=== PATIENT | female | born 1975 | race African-American/Black ===

== ENCOUNTER 2019-07-03 13:47 | Emergency (ER) | payer BC ==
--- NOTE | 2019-07-03 16:41 | ER ---
Nurse's Notes [facility] Name: Jennifer Horan Age: 44 yrs Sex: Female : 1975 Arrival Date: 07/03/2019 Time: 13:49 Bed Waiting Private MD: Unknown, Unknown Diagnosis: Presentation: 07/03 13:51 Presenting complaint: Patient states: mid back pain radiating to abdomen x 1 week ago. aa5 Pt reports recent UTI but currently denies any urinary symptoms. Transition of care: patient was not received from another setting of care. Onset of symptoms was June 2019. Risk Assessment: Do you want to hurt yourself or someone else? Patient reports no desire to harm self or others. Initial Sepsis Screen: Does the patient meet any 2 criteria? No. Patient's initial sepsis screen is negative. Does the patient have a suspected source of infection? No. Patient's initial sepsis screen is negative. Care prior to arrival: None. 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 - Social history:: Smoking status: Patient/guardian denies using tobacco. - Ebola Screening: : No symptoms or risks identified at this time. Vital Signs: 13:54 BP 103 / 63; Pulse 77; Resp 18 S; Temp 98.5(O); Pulse Ox 100% on R/A; Weight 86.18 kg aa5 (R); Height 5 ft. 6 in. (167.64 cm) (R); Pain 9/10; 13:54 Body Mass Index 30.67 (86.18 kg, 167.64 cm) aa5 ED Course: 13:49 Patient arrived in ED. ag5 13:49 Unknown, Unknown is Private Physician. ag5 13:51 Arm band placed on. aa5 13:54 Triage completed. aa5 15:33 Collin Blanc MD is Attending Physician. kdr Administered Medications: No medications were administered Outcome: 16:40 Patient left the ED. aa5 Signatures: Collin Blanc MD MD kdr Hyacinth Hillman RN RN aa5 Brayan Calderon ag5
== END 2019-07-03 16:40 | disposition left against medical advice (07) ==
LOC: ER 13:47
DX: Z53.21 Procedure and treatment not carried out due to patient leaving prior to being seen by health care provider (principal)

== ENCOUNTER 2019-07-04 14:04 | Emergency (ER) | payer BC ==
[2019-07-04] MEDS ORDERED: KETOROLAC 30 MG/ML INJ ONE (15:06)
[2019-07-04] MEDS ORDERED: NA CHLORIDE 0.9% 1,000 ML ONE (15:06)
[2019-07-04 15:08] LABS: Absolute Lymphocytes (CBC) 1.3 K/uL (0.7-4.9); Basophils % 0.6 % (0-1.3); Hematocrit 34.5 % (36.0-45.0); Lymphocytes % 28.5 % (15.3-44.8); MPV 8.1 fL (7.6-11.3); RBC Red Blood Cell Count 4.28 M/uL (3.86-4.86)
[2019-07-04 15:11] LABS: Protime INR 1.04
[2019-07-04 15:13] LABS: Urine Blood TRACE (NEG); Urine Glucose NEGATIVE (NEG); Urine Protein NEGATIVE (NEG); Urine Specific Gravity 1.025 (1.005-1.030)
--- NOTE | 2019-07-04 15:20 | RAD REPORT ---
EXAM DESCRIPTION: Sofie Single View07/04/2019 2:46 pm CLINICAL HISTORY: cough COMPARISON: none FINDINGS: The lungs appear clear of acute infiltrate. The heart is normal size IMPRESSION: No acute abnormalities displayed
[2019-07-04 15:26] LABS: ALT/SGPT 26 U/L (12-78); AST/SGOT 18 U/L (15-37); Albumin 3.6 g/dL (3.4-5.0); Alkaline Phosphatase 97 U/L (45-117); BUN Blood Urea Nitrogen 10 mg/dL (7-18); Bicarbonate 27 mmol/L (21-32); Bilirubin Direct < 0.1 mg/dL (0-0.2); Bilirubin Total 0.2 mg/dL (0.2-1.0); Glucose Level 91 mg/dL (74-106); Lipase 146 U/L (73-393); Magnesium 2.1 mg/dL (1.8-2.4); NT PRO-BNP 43 pg/mL (<125); Potassium 3.7 mmol/L (3.5-5.1); Sodium Level 141 mmol/L (136-145); Troponin (Emerg Dept Use Only) < 0.02 ng/mL (0.0-0.045)
--- NOTE | 2019-07-04 15:56 | ER ---
Nurse's Notes [facility] Name: Jennifer Horan Age: 44 yrs Sex: Female : 1975 Arrival Date: 07/04/2019 Time: 14:05 Bed 18 Private MD: Diagnosis: Muscle spasm;Muscle spasm of back;Strain of muscle and tendon of back wall of thorax Presentation: 07/04 14:07 Presenting complaint: Patient states: Eloped from waiting room yesterday and went to [address] ER and had a chest x-ray done. Pt states "they couldn't find anything wrong with the chest x-ray". Pt reports mid back pain radiating to abdomen x 1 week ago. Denies urinary symptoms, denies nausea/vomiting. 14:07 Transition of care: patient was not received from another setting of care. Onset of [facility] symptoms was June 2019. Risk Assessment: Do you want to hurt yourself or someone else? Patient reports no desire to harm self or others. Initial Sepsis Screen: Does the patient meet any 2 criteria? No. Patient's initial sepsis screen is negative. Does the patient have a suspected source of infection? No. Patient's initial sepsis screen is negative. Care prior to arrival: None. 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 - Social history:: Smoking status: Patient/guardian denies using tobacco. - Ebola Screening: : No symptoms or risks identified at this time. - Family history:: not pertinent. Screenin:15 Abuse screen: Denies threats or abuse. Nutritional screening: No deficits noted. rb1 Tuberculosis screening: No symptoms or risk factors identified. Fall Risk None identified. Assessment: 14:15 General: Appears in no apparent distress. comfortable, Behavior is calm, cooperative. rb1 Pain: Complains of pain in mid back area Pain radiates to abdomen. Neuro: Level of Consciousness is awake, alert, obeys commands, Oriented to person, place, time, situation. Cardiovascular: Capillary refill < 3 seconds is brisk in bilateral fingers. Respiratory: Airway is patent Respiratory effort is even, unlabored, Respiratory pattern is regular, symmetrical. GI: No signs and/or symptoms were reported involving the gastrointestinal system. : No signs and/or symptoms were reported regarding the genitourinary system. Derm: Skin is dry, Skin is normal, Skin temperature is warm. Musculoskeletal: Range of motion: intact in all extremities. 15:15 Reassessment: Patient appears in no apparent distress at this time. No changes from rb1 previously documented assessment. 16:15 Reassessment: Patient appears in no apparent distress at this time. Patient and/or rb1 family updated on plan of care and expected duration. Pain level reassessed. Patient is alert, oriented x 3, equal unlabored respirations, skin warm/dry/pink. Pt. is trying to rest, reports feeling much better. 17:10 Reassessment: Patient appears in no apparent distress at this time. No changes from rb1 previously documented assessment. Vital Signs: 14:10 Weight 86.18 kg (R); Height 5 ft. 6 in. (167.64 cm) (R); Pain 9/10; aa5 14:15 BP 119 / 72; Pulse 77; Resp 20; Temp 98.0; Pulse Ox 100% ; lt1 15:15 BP 110 / 61; Pulse 57; Resp 16; Temp 98.3(O); Pulse Ox 100% on R/A; Pain 5/10; rb1 16:15 BP 125 / 79; Pulse 63; Resp 15; Temp 98.4(O); Pulse Ox 100% on R/A; Pain 4/10; rb1 17:10 BP 124 / 91; Pulse 66; Resp 15; Temp 98.5(O); Pulse Ox 100% on R/A; Pain 4/10; rb1 14:10 Body Mass Index 30.67 (86.18 kg, 167.64 cm) aa5 ED Course: 14:05 Patient arrived in ED. as 14:07 Rufina Jaime, RN is Primary Nurse. rb1 14:07 Arm band placed on Patient placed in an exam room, on a stretcher. aa5 14:10 Ishan Alonzo MD is Attending Physician. [facility] 14:15 Patient has correct armband on for positive identification. Bed in low position. Call rb1 light in reach. Side rails up X 1. robotics testing technician on. Pulse ox on. NIBP on. Warm blanket given. 14:21 Triage completed. aa5 14:45 EKG done, by evs tech. reviewed by Ishan Alonzo MD. at1 14:50 XRAY Chest (1 view) In Process Unspecified. EDMS 14:54 Initial lab(s) drawn, by wi, sent to lab. Inserted saline lock: 22 gauge in left lt1 antecubital area, using aseptic technique. 17:16 No provider procedures requiring assistance completed. IV discontinued, intact, rb1 bleeding controlled, No redness/swelling at site. Pressure dressing applied. Administered Medications: 15:10 Drug: TORadol 30 mg Route: IVP; Site: left antecubital; mg2 15:25 Follow up: Response: No adverse reaction; Pain is decreased rb1 15:10 Drug: NS 0.9% 1000 ml Route: IV; Rate: 1 bolus; Site: left antecubital; mg2 16:30 Follow up: IV Status: Completed infusion rb1 Outcome: 15:54 Discharge ordered by . rajesh 17:16 Patient left the ED. rb1 17:16 Discharged to home ambulatory. rb1 17:16 Condition: stable 17:16 Discharge instructions given to patient, Instructed on discharge instructions, follow up and referral plans. medication usage, Demonstrated understanding of instructions, follow-up care, medications, Prescriptions given X 3. Signatures: Dispatcher [employer] [facility] Ishan Alonzo MD MD cha Martinez, Amelia as Calderon, Audri, ROWENA RN aa5 Arleen Whitmore, grocery team member EKG Tat1 Rufina Jaime, RN RN rb1 Saturnino Maxwell RN RN mg2 Braga, Anneliese lt1
--- NOTE | 2019-07-04 15:56 | EDPHYS ---
Physician Documentation [facility] Name: Jennifer Horan Age: 44 yrs Sex: Female : 1975 Arrival Date: 07/04/2019 Time: 14:05 Bed 18 Private MD: ED Physician Ishan Alonzo HPI: 07/04 14:34 This 44 yrs old Black Female presents to ER via Ambulatory with complaints of Flank rajesh Pain. 14:34 The patient complains of pain in the mid back area and left mid back. The pain does not rajesh radiate. Onset: The symptoms/episode began/occurred 3 day(s) ago. Modifying factors: The symptoms are alleviated by remaining still, the symptoms are aggravated by movement. Associated signs and symptoms: The patient has no apparent associated signs or symptoms. Severity of pain: At its worst the pain was moderate in the emergency department the pain is unchanged. The patient has not experienced similar symptoms in the past. 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 - Social history:: Smoking status: Patient/guardian denies using tobacco. - Ebola Screening: : No symptoms or risks identified at this time. - Family history:: not pertinent. ROS: 14:34 Constitutional: Negative for fever, chills, and weight loss, Eyes: Negative for injury, rajesh pain, redness, and discharge, ENT: Negative for injury, pain, and discharge, Neck: Negative for injury, pain, and swelling, Cardiovascular: Negative for chest pain, palpitations, and edema, Respiratory: Negative for shortness of breath, cough, wheezing, and pleuritic chest pain, Abdomen/GI: Negative for abdominal pain, nausea, vomiting, diarrhea, and constipation, : Negative for injury, bleeding, discharge, and swelling, MS/Extremity: Negative for injury and deformity, Skin: Negative for injury, rash, and discoloration, Neuro: Negative for headache, weakness, numbness, tingling, and seizure, Psych: Negative for depression, anxiety, suicide ideation, homicidal ideation, and hallucinations, Allergy/Immunology: Negative for hives, rash, and allergies, Endocrine: Negative for neck swelling, polydipsia, polyuria, polyphagia, and marked weight changes. 14:34 Back: Positive for decreased range of motion, pain at rest, pain with movement, flank pain, bilaterally. Exam: 14:34 Constitutional: This is a well developed, well nourished patient who is awake, alert, rajesh and in no acute distress. Head/Face: Normocephalic, atraumatic. Eyes: Pupils equal round and reactive to light, extra-ocular motions intact. Lids and lashes normal. Conjunctiva and sclera are non-icteric and not injected. Cornea within normal limits. Periorbital areas with no swelling, redness, or edema. ENT: Nares patent. No nasal discharge, no septal abnormalities noted. Tympanic membranes are normal and external auditory canals are clear. Oropharynx with no redness, swelling, or masses, exudates, or evidence of obstruction, uvula midline. Mucous membranes moist. Neck: Trachea midline, no thyromegaly or masses palpated, and no cervical lymphadenopathy. Supple, full range of motion without nuchal rigidity, or vertebral point tenderness. No Meningismus. Chest/axilla: Normal chest wall appearance and motion. Nontender with no deformity. No lesions are appreciated. Cardiovascular: Regular rate and rhythm with a normal S1 and S2. No gallops, murmurs, or rubs. Normal PMI, no JVD. No pulse deficits. Respiratory: Lungs have equal breath sounds bilaterally, clear to auscultation and percussion. No rales, rhonchi or wheezes noted. No increased work of breathing, no retractions or nasal flaring. Abdomen/GI: Soft, non-tender, with normal bowel sounds. No distension or tympany. No guarding or rebound. No evidence of tenderness throughout. Female : Normal external genitalia. Skin: Warm, dry with normal turgor. Normal color with no rashes, no lesions, and no evidence of cellulitis. MS/ Extremity: Pulses equal, no cyanosis. Neurovascular intact. Full, normal range of motion. Neuro: Awake and alert, GCS 15, oriented to person, place, time, and situation. Cranial nerves II-XII grossly intact. Motor strength 5/5 in all extremities. Sensory grossly intact. Cerebellar exam normal. Normal gait. Psych: Awake, alert, with orientation to person, place and time. Behavior, mood, and affect are within normal limits. 14:34 Back: pain, that is moderate, ROM is painful, normal spinal alignment noted, CVA tenderness, is absent, vertebral tenderness, is not appreciated, muscle spasm, is appreciated in the left low back, left mid back, right mid back and right low back. Vital Signs: 14:10 Weight 86.18 kg (R); Height 5 ft. 6 in. (167.64 cm) (R); Pain 9/10; aa5 14:15 BP 119 / 72; Pulse 77; Resp 20; Temp 98.0; Pulse Ox 100% ; lt1 15:15 BP 110 / 61; Pulse 57; Resp 16; Temp 98.3(O); Pulse Ox 100% on R/A; Pain 5/10; rb1 16:15 BP 125 / 79; Pulse 63; Resp 15; Temp 98.4(O); Pulse Ox 100% on R/A; Pain 4/10; rb1 17:10 BP 124 / 91; Pulse 66; Resp 15; Temp 98.5(O); Pulse Ox 100% on R/A; Pain 4/10; rb1 14:10 Body Mass Index 30.67 (86.18 kg, 167.64 cm) aa5 MDM: 14:10 Patient medically screened. [facility] 14:34 Data reviewed: vital signs, nurses notes, lab test result(s), EKG, radiologic studies, rajesh plain films. 15:52 ED course: no trauma, no stasis no hypercoagulable state. [facility] 07/04 14:33 Order name: Basic Metabolic Panel [facility] 07/04 14:33 Order name: CBC with Diff; Complete Time: 15:51 [facility] 07/04 14:33 Order name: LFT's; Complete Time: 15:51 [facility] 07/04 14:33 Order name: Magnesium; Complete Time: 15:51 [facility] 07/04 14:33 Order name: NT PRO-BNP; Complete Time: 15:51 [facility] 07/04 14:33 Order name: PT-INR; Complete Time: 15:51 [facility] 07/04 14:33 Order name: Troponin (emerg Dept Use Only); Complete Time: 15:51 [facility] 07/04 14:33 Order name: XRAY Chest (1 view); Complete Time: 15:51 [facility] 07/04 14:33 Order name: Lipase; Complete Time: 15:51 [facility] 07/04 14:33 Order name: Urine Culture [facility] 07/04 14:33 Order name: D-Dimer; Complete Time: 15:51 [facility] 07/04 14:34 Order name: Basic Metabolic Panel; Complete Time: 15:51 EDMS 07/04 15:08 Order name: Urine Dipstick--Ancillary (enter results); Complete Time: 15:51 eb 07/04 15:08 Order name: Urine --Ancillary (enter results); Complete Time: 15:51 07/04 14:33 Order name: EKG; Complete Time: 14:35 [facility] 07/04 14:33 Order name: Cardiac monitoring; Complete Time: 15:08 [facility] 07/04 14:33 Order name: EKG - Nurse/Tech; Complete Time: 15:07 [facility] 07/04 14:33 Order name: IV Saline Lock; Complete Time: 14:55 [facility] 07/04 14:33 Order name: Labs collected and sent; Complete Time: 15:19 [facility] 07/04 14:33 Order name: O2 Per Protocol; Complete Time: 14:55 [facility] 07/04 14:33 Order name: O2 Sat Monitoring; Complete Time: 14:55 [facility] 07/04 14:33 Order name: Urine Dipstick-Ancillary (obtain specimen); Complete Time: 15:07 [facility] 07/04 14:33 Order name: Urine Test (obtain specimen); Complete Time: 15:07 [facility] Administered Medications: 15:10 Drug: TORadol 30 mg Route: IVP; Site: left antecubital; mg2 15:25 Follow up: Response: No adverse reaction; Pain is decreased rb1 15:10 Drug: NS 0.9% 1000 ml Route: IV; Rate: 1 bolus; Site: left antecubital; mg2 16:30 Follow up: IV Status: Completed infusion rb1 Disposition: 07/04/19 15:54 Discharged to Home. Impression: Muscle spasm, Muscle spasm of back, Strain of muscle and tendon of back wall of thorax. - Condition is Stable. - Discharge Instructions: Back Pain, Adult, Muscle Cramps and Spasms, Back Pain, Adult, [id number], Muscle Cramps and Spasms, [id number], Back Exercises, [id number]. - Prescriptions for Ibuprofen 600 mg Oral Tablet - take 1 tablet by ORAL route every 8 hours As needed take with food; 20 tablet. Tylenol- Codeine #3 300-30 mg Oral Tablet - take 2 tablets by ORAL route every 6 hours As needed; 20 tablet. Cyclobenzaprine 5 mg Oral Tablet - take 1 tablet by ORAL route 3 times per day As needed; 15 tablet. - Medication Reconciliation Form, Thank You Letter, Antibiotic Education, Prescription Opioid Use, Work release form form. - Follow up: Private Physician; When: 2 - 3 days; Reason: Recheck today's complaints, Continuance of care, Re-evaluation by your physician. - Problem is new. - Symptoms have improved. Signatures: Dispatcher [employer] EDMS Ishan Alonzo MD MD cha Calderon, Audri RN RN aa5 Rufina Jaime, ROWENA RN rb1 Saturnino Mawxell RN RN mg2 Corrections: (The following items were deleted from the chart) 17:16 15:54 07/04/2019 15:54 Discharged to Home. Impression: Muscle spasm; Muscle spasm of rb1 back; Strain of muscle and tendon of back wall of thorax. Condition is Stable. Discharge Instructions: Back Pain, Adult, Muscle Cramps and Spasms, Back Pain, Adult, [id number], Muscle Cramps and Spasms, [id number], Back Exercises, [id number]-sy-[id number]. Prescriptions for Ibuprofen 600 mg Oral Tablet - take 1 tablet by ORAL route every 8 hours As needed take with food; 20 tablet, Tylenol-Codeine #3 300-30 mg Oral Tablet - take 2 tablets by ORAL route every 6 hours As needed; 20 tablet, Cyclobenzaprine 5 mg Oral Tablet - take 1 tablet by ORAL route 3 times per day As needed; 15 tablet. and Forms are Medication Reconciliation Form, Thank You Letter, Antibiotic Education, Prescription Opioid Use. Follow up: Private Physician; When: 2 - 3 days; Reason: Recheck today's complaints, Continuance of care, Re-evaluation by your physician. Problem is new. Symptoms have improved. rajesh
--- NOTE | 2019-07-05 11:48 | EKG ---
Test Date: 2019-07-04 Test Time: 14:38:01 [place] Server: [facility] MEASUREMENT RESULTS: Intervals: Rate: 63 NV: 180 QRSD: 70 QT: 394 QTc: 403 [place]: P: 48 NV: 180 QRS: 59 T: 23 INTERPRETIVE STATEMENTS: Normal sinus rhythm Normal ECG No previous ECG available for comparison Electronically Signed On 07-05-19 11:45:16 CDT by Barak Caraballo
== END 2019-07-04 17:16 | disposition home or self-care (01) ==
LOC: ER 14:04
DX: S29.012A Strain of muscle and tendon of back wall of thorax, initial encounter (principal); M62.830 Muscle spasm of back
CPT/HCPCS: 96361; 93005; 87088; 85025; 87086; 80048; 36415; 83735; 81025; 85610; 85379; 80076; 81003; 84484; 83690; 83880; 71045; 96374; 99285; J7030